=== PATIENT | female | born 1990 | race Caucasian/White ===

== ENCOUNTER → 2017-08-20 | Emergency (ER) | payer OTHER ==
[~2017-08-20] VITALS: Ht 154.9 cm; Wt 57.2 kg
[~2017-08-20] MED LIST: GILTUSS COUGH-118 ML PO; PROVENTIL HFA6.7 GM IH; PROVENTIL3 ML/2.5 M IH; SINGULAIR 10MG10 MG PO
== END | disposition left against medical advice (07) ==
LOC: ER 16:33
DX: Z53.20 Procedure and treatment not carried out because of patient's decision for unspecified reasons (principal)